=== PATIENT | male | born 1955 | race African-American/Black ===

== ENCOUNTER 2022-08-29 22:08 | Emergency (ER) | payer MEDICARE, MEDICAID ==
[~2022-08-29] VITALS: Ht 185.4 cm; Wt 89.4 kg
[~2022-08-29 22:08] MED LIST: ATOR80TA MT; CLOP-31 MT; LOSA100T33 MT
[2022-08-29 22:22] VITALS: O2SAT 100
[2022-08-29] MEDS ORDERED: AMLODIPINE 5MG TABLET PO ONE (22:30)
[2022-08-29 23:09] LABS: EOSINOPHILS % 2.8 % (0.0-5.0); HEMATOCRIT. 41.1 % (42.0-52.0); HEMOGLOBIN. 13.6 g/dL (14.0-18.0); LYMPHOCYTES % 22.8 % (20.0-50.0); MEAN CORPUSCULAR HEMOGLOBIN 27.8 pg (28.0-32.0); MEAN CORPUSCULAR VOLUME 83.8 fL (80.0-94.0); MEAN PLATELET VOLUME 8.9 fl (7.4-10.4); MONOCYTES % 8.7 % (2.0-8.0); NEUTROPHILS % 64.7 % (40.0-76.0); PLATELET 256 x1000/uL (130-400); RED BLOOD CELL COUNT 4.91 mill/uL (4.7-6.1); RED CELL DISTRIBUTION WIDTH 14.3 % (11.6-14.6)
[2022-08-29 23:12] LABS: CHLORIDE 106 mEq/L (98-107)
[2022-08-30] MEDS ORDERED: AMLO5TAB4 MT ×3 (03:04→04:24)
[2022-08-30 03:53] VITALS: BP 185/98; PULSE 70; RESP 16; TEMP 98.4
== END 2022-08-30 04:33 | disposition home or self-care (01) ==
LOC: ER 22:08
DX: I10 Essential (primary) hypertension (principal); R51.9 Headache, unspecified; Z86.73 Personal history of transient ischemic attack (TIA), and cerebral infarction without residual deficits
CPT/HCPCS: 36415; 80053; 85025; 93005; 99285

== ENCOUNTER 2022-09-26 14:03 | Emergency (ER) | payer MEDICARE, MEDICAID ==
[~2022-09-26] VITALS: Ht 185.4 cm; Wt 91.8 kg
[~2022-09-26 14:03] MED LIST changes: +AMLO5TAB4 MT
[2022-09-26 14:07] VITALS: O2SAT 100
[2022-09-26] MEDS ORDERED: CLONIDINE 0.2MG TABLET PO ONE (14:45)
[2022-09-26] MEDS ORDERED: CLONIDINE 0.1MG TABLET PO NR (14:45)
[2022-09-26 17:36] VITALS: BP 146/76; PULSE 60; RESP 18; TEMP 98.2
== END 2022-09-26 17:51 | disposition home or self-care (01) ==
LOC: ER 14:50
DX: I10 Essential (primary) hypertension (principal); Z86.73 Personal history of transient ischemic attack (TIA), and cerebral infarction without residual deficits
CPT/HCPCS: 93005; 99283